=== PATIENT | female | born 1985 | race American Indian/Alaskan Native ===

== ENCOUNTER 2018-01-03 17:50 | Emergency (ER) | payer SELFPAY ==
[2018-01-03 19:25] LABS: Basophils # (Auto) 0.1 K/mm3 (0.0-0.1); Basophils % (Auto) 1.1 % (0.0-1.8); Eosinophils # (Auto) 0.2 K/mm3 (0.0-0.4); Eosinophils % (Auto) 3.5 % (0.0-4.3); Hematocrit 37.3 % (30.3-42.9); Hemoglobin 13.2 gm/dl (10.1-14.3); Lymphocytes % (Auto) 28.1 % (13.4-35.0); Mean Corpuscular HGB Conc 35 % (30-34); Mean Corpuscular Hemoglobin 34 pg (28-32); Mean Corpuscular Volume 96 fl (79-97); Monocytes # (Auto) 0.4 K/mm3 (0.0-0.8); Monocytes % (Auto) 6.2 % (0.0-7.3); Platelet Count 246 K/mm3 (140-440); Red Blood Count 3.89 M/mm3 (3.65-5.03); Red Cell Distribution Width 12.9 % (13.2-15.2)
[2018-01-03 19:42] LABS: Alanine Aminotransferase 13 units/L (7-56); Albumin 4.6 g/dL (3.9-5); BUN/Creatinine Ratio 10; Blood Urea Nitrogen 9 mg/dL (7-17); Calcium 9.8 mg/dL (8.4-10.2); Hemolysis Index 8
[2018-01-04 00:19] LABS: HCG Qualitative,Urine Negative (Negative)
[2018-01-04 00:20] LABS: Bilirubin,Urine NEG (Negative); Blood,Urine MOD (Negative); Color,Urine Yellow (Yellow); Mucus,Urine FEW /HPF; Urobilinogen,Urine < 2.0 mg/dL (<2.0)
[2018-01-04 00:21] LABS: WBC,Urine > 182.0 /HPF (0.0-6.0)
--- NOTE | 2018-01-04 01:04 | Emergency Department Report ---
ED Female HPI - General Chief complaint: Urogenital-Female Stated complaint: PRESSURE/PAIN WITH URINATION Time Seen by Provider: 01/04/18 00:50 Source: patient, family Mode of arrival: Ambulatory Limitations: No Limitations - History of Present Illness Initial comments: This is a 32-year-old female here reported that she's been having urinary burning and pressure over the last 2 days. She said prior to this about a week ago she had a yeast infection after using douche . She reported that she had white vaginal discharge and she used [id number] medication for yeast infection and that cleared up but she started having burning. Pain is 0 out of 10. Denies any nausea or vomiting. Denies any abdominal or back pain. Denies any fever or chills. She is here to be evaluated. She is currently menstruating. Patient is not having any vaginal discharge at present and she has no concern for STDs. MD Complaint: dysuria Onset/Timin -: days(s) Severity scale (0 -10): 0 Are you Now?: No Last Menstrual Period: 12/24/17 EDC: 09/30/18 Associated Symptoms: dysuria. denies: vaginal discharge, vaginal bleeding, abdominal pain, nausea/vomiting, fever/chills, headaches, loss of appetite, hematuria, rash, seizure, shortness of breath, syncope, weakness - Related Data Sexually active: Yes Previous Rx's Medication Instructions Recorded Last Taken Type Sulfamethoxazole/Trimethoprim 1 each PO BID 10 Days #20 tablet 01/04/18 Unknown Rx [Bactrim DS TAB] Allergies Allergy/AdvReac Type Severity Reaction Status Date / Time No Known Allergies Allergy Unverified 01/03/18 19:08 ED Review of Systems ROS: Stated complaint: PRESSURE/PAIN WITH URINATION Other details as noted in HPI Constitutional: denies: chills, fever Respiratory: denies: cough, shortness of breath, SOB with exertion, SOB at rest , wheezing Cardiovascular: denies: chest pain, palpitations Gastrointestinal: denies: abdominal pain, nausea, vomiting, diarrhea, constipation Genitourinary: dysuria, other (urinary pressure). denies: urgency, frequency, hematuria, discharge, abnormal menses, dyspareunia Musculoskeletal: denies: back pain Skin: denies: rash, lesions Hematological/Lymphatic: easy bleeding ED Past Medical Hx - Past Medical History Previous Medical History?: No - Surgical History Past Surgical History?: No - Family History Family history: no significant - Social History Smoking Status: Current Every Day Smoker Substance Use Type: Alcohol - Medications Home Medications: Home Medications Medication Instructions Recorded Confirmed Last Taken Type Sulfamethoxazole/Trimethoprim 1 each PO BID 10 Days #20 tablet 01/04/18 Unknown Rx [Bactrim DS TAB] ED Physical Exam - General Limitations: No Limitations General appearance: alert, in no apparent distress - Head Head exam: Present: atraumatic, normocephalic, normal inspection - Eye Eye exam: Present: normal appearance, PERRL, EOMI Pupils: Present: normal accommodation - ENT ENT exam: Present: normal exam, normal orophraynx, mucous membranes moist - Neck Neck exam: Present: normal inspection, full ROM. Absent: tenderness, lymphadenopathy - Respiratory Respiratory exam: Present: normal lung sounds bilaterally. Absent: respiratory distress, chest wall tenderness - Cardiovascular Cardiovascular Exam: Present: regular rate, normal rhythm, normal heart sounds. Absent: systolic murmur, diastolic murmur - GI/Abdominal GI/Abdominal exam: Present: soft, normal bowel sounds. Absent: distended, tenderness - Extremities Exam Extremities exam: Present: normal inspection, full ROM, normal capillary refill , other (no clubbing, cyanosis or edema. +2 pulses to all extremities and no neurovascular compromise). Absent: tenderness, pedal edema, calf tenderness - Back Exam Back exam: Present: normal inspection, full ROM, other (ambulates without any difficulties). Absent: tenderness, CVA tenderness (R), CVA tenderness (L), rash noted - Neurological Exam Neurological exam: Present: alert, oriented X3, normal gait - Psychiatric Psychiatric exam: Present: normal affect, normal mood - Skin Skin exam: Present: warm, dry, intact, normal color. Absent: rash ED Course Vital Signs 01/03/18 01/04/18 19:03 01:15 Temperature 98.4 F Pulse Rate 69 72 Respiratory 16 16 Rate Blood Pressure 144/56 Blood Pressure 132/76 [Left] O2 Sat by Pulse 100 100 Oximetry - Reevaluation(s) Reevaluation #1: 01/04/18 01:49 Patient given Bactrim DS 1 tablet by mouth to start treating urinary tract infection. Urinalysis shows acute cystitis with hematuria. ED Medical Decision Making - Lab Data Result diagrams: 01/03/18 19:14 01/03/18 19:14 Lab Results 01/03/18 01/03/18 01/03/18 Range/Units 19:14 19:14 23:52 WBC 7.0 (4.5-11.0) K/mm3 RBC 3.89 (3.65-5.03) M/mm3 Hgb 13.2 (10.1-14.3) gm/dl Hct 37.3 (30.3-42.9) % MCV 96 (79-97) fl MCH 34 H (28-32) pg MCHC 35 H (30-34) % RDW 12.9 L (13.2-15.2) % Plt Count 246 (140-440) K/mm3 Lymph % (Auto) 28.1 (13.4-35.0) % [place] % (Auto) 6.2 (0.0-7.3) % Eos % (Auto) 3.5 (0.0-4.3) % Baso % (Auto) 1.1 (0.0-1.8) % Lymph # 2.0 (1.2-5.4) K/mm3 [place] # 0.4 (0.0-0.8) K/mm3 Eos # 0.2 (0.0-0.4) K/mm3 Baso # 0.1 (0.0-0.1) K/mm3 Seg Neutrophils % 61.1 (40.0-70.0) % Seg Neutrophils # 4.2 (1.8-7.7) K/mm3 Sodium 140 (137-145) mmol/L Potassium 4.5 (3.6-5.0) mmol/L Chloride 102.5 (98-107) mmol/L Carbon Dioxide 27 (22-30) mmol/L Anion Gap 15 mmol/L BUN 9 (7-17) mg/dL Creatinine 0.9 (0.7-1.2) mg/dL Estimated GFR > 60 ml/min BUN/Creatinine Ratio 10 % Glucose 93 (65-100) mg/dL Calcium 9.8 (8.4-10.2) mg/dL Total Bilirubin 0.70 (0.1-1.2) mg/dL AST 19 (5-40) units/L ALT 13 (7-56) units/L Alkaline Phosphatase 42 (35-129) units/L Total Protein 7.7 (6.3-8.2) g/dL Albumin 4.6 (3.9-5) g/dL Albumin/Globulin Ratio 1.5 % Urine Color Yellow (Yellow) Urine Turbidity Clear (Clear) Urine pH 5.0 (5.0-7.0) Ur Specific [place] 1.015 (1.003-1.030) Urine Protein 30 mg/dl (Negative) mg/dL Urine Glucose (UA) Neg (Negative) mg/dL Urine Ketones Neg (Negative) mg/dL Urine Blood Mod (Negative) Urine Nitrite Neg (Negative) Urine Bilirubin Neg (Negative) Urine Urobilinogen < 2.0 (<2.0) mg/dL Ur Leukocyte Esterase Lg (Negative) Urine WBC (Auto) > 182.0 H (0.0-6.0) /HPF Urine RBC (Auto) 20.0 (0.0-6.0) /HPF U Epithel Cells (Auto) 10.0 (0-13.0) /HPF Urine Mucus Few /HPF Urine HCG, Qual (Negative) 01/03/18 Range/Units 23:52 WBC (4.5-11.0) K/mm3 RBC (3.65-5.03) M/mm3 Hgb (10.1-14.3) gm/dl Hct (30.3-42.9) % MCV (79-97) fl MCH (28-32) pg MCHC (30-34) % RDW (13.2-15.2) % Plt Count (140-440) K/mm3 Lymph % (Auto) (13.4-35.0) % [place] % (Auto) (0.0-7.3) % Eos % (Auto) (0.0-4.3) % Baso % (Auto) (0.0-1.8) % Lymph # (1.2-5.4) K/mm3 [place] # (0.0-0.8) K/mm3 Eos # (0.0-0.4) K/mm3 Baso # (0.0-0.1) K/mm3 Seg Neutrophils % (40.0-70.0) % Seg Neutrophils # (1.8-7.7) K/mm3 Sodium (137-145) mmol/L Potassium (3.6-5.0) mmol/L Chloride (98-107) mmol/L Carbon Dioxide (22-30) mmol/L Anion Gap mmol/L BUN (7-17) mg/dL Creatinine (0.7-1.2) mg/dL Estimated GFR ml/min BUN/Creatinine Ratio % Glucose (65-100) mg/dL Calcium (8.4-10.2) mg/dL Total Bilirubin (0.1-1.2) mg/dL AST (5-40) units/L ALT (7-56) units/L Alkaline Phosphatase (35-129) units/L Total Protein (6.3-8.2) g/dL Albumin (3.9-5) g/dL Albumin/Globulin Ratio % Urine Color (Yellow) Urine Turbidity (Clear) Urine pH (5.0-7.0) Ur Specific [place] (1.003-1.030) Urine Protein (Negative) mg/dL Urine Glucose (UA) (Negative) mg/dL Urine Ketones (Negative) mg/dL Urine Blood (Negative) Urine Nitrite (Negative) Urine Bilirubin (Negative) Urine Urobilinogen (<2.0) mg/dL Ur Leukocyte Esterase (Negative) Urine WBC (Auto) (0.0-6.0) /HPF Urine RBC (Auto) (0.0-6.0) /HPF U Epithel Cells (Auto) (0-13.0) /HPF Urine Mucus /HPF Urine HCG, Qual Negative (Negative) Urine culture sent - Medical Decision Making Patient here reports that she is having urinary burning. Patient's urinalysis shows that she has acute cystitis with hematuria. Urine culture sent. CBC and CMP stable, hCG is negative. Physical exam is normal. I discussed the patient laboratory findings and she voiced understanding. Patient started on Bactrim DS one tablet by mouth in emergency room. DX of acute cystitis with hematuria, dysuria Discharged home in stable condition with prescription for Bactrim DS. I discussed that she is to follow-up with her primary care physician and if she doesn't have a primary care physician she should follow up with [facility] and she voiced understanding. Vital signs are stable she is afebrile. - Differential Diagnosis STI, urinary tract infection, dysuria Critical care attestation.: If time is entered above; I have spent that time in minutes in the direct care of this critically ill patient, excluding procedure time. ED Disposition Clinical Impression: Acute cystitis with hematuria, Dysuria Disposition: TO HOME OR SELFCARE Is pt being admited?: No Does the pt Need Aspirin: No Condition: Stable Instructions: Urinary Tract Infection in Women (ED), Dysuria (ED) Additional Instructions: Please take antibiotic as prescribed Increased her fluid intake Follow-up with your SENIOR TRIAL ATTORNEY or primary care physician in 3-5 days if you do not have one you can follow-up with outside Medical Center If his symptoms worsens, return to the emergency room. Prescriptions: Sulfamethoxazole/Trimethoprim [Bactrim DS TAB] 1 each PO BID 10 Days #20 tablet Referrals: PRIMARY CARE, [Primary Care Provider] - 3-5 Days [facility] [Outside] - 3-5 Days Forms: Work/School Release Form(ED)
[2018-01-04] MEDS ORDERED: BACTRIM DS PO ONE (01:06)
[2018-01-04 01:16] VITALS: BP 132/76
== END 2018-01-04 02:03 | disposition home or self-care (01) ==
LOC: ED 17:50
DX: N30.01 Acute cystitis with hematuria (principal); F17.200 Nicotine dependence, unspecified, uncomplicated
CPT/HCPCS: 36415; 80053; 81001; 81025; 85025; 87086; 99283

== ENCOUNTER 2018-07-13 17:29 | Emergency (ER) | payer SELFPAY ==
[2018-07-13 19:39] LABS: Bilirubin,Urine NEG (Negative); Blood,Urine MOD (Negative); Color,Urine Yellow (Yellow); Mucus,Urine FEW /HPF; Protein,Urine <15 mg/dL mg/dL (Negative); WBC,Urine < 1.0 /HPF (0.0-6.0)
[2018-07-13 19:43] LABS: HCG Qualitative,Urine Negative (Negative)
[2018-07-13] MEDS ORDERED: ZITHROMAX PO ONE (21:23)
[2018-07-13] MEDS ORDERED: XYLOCAINE 1% MPF 5 mL INFILTRATI ONE (21:23)
[2018-07-13] MEDS ORDERED: ROCEPHIN IM ONE (21:23)
--- NOTE | 2018-07-13 21:23 | Emergency Department Report ---
ED Female HPI - General Chief complaint: Urogenital-Female Stated complaint: VAGINAL PAIN/FEVER Time Seen by Provider: 07/13/18 20:57 Source: patient, family Mode of arrival: Ambulatory Limitations: No Limitations - History of Present Illness Initial comments: This is a 32-year-old female here report that she has recurrent UTI, urinary burning, irritation and lower back pain with some nausea. She said her symptoms started last week and pain is 6 out of 10 to bilateral lower back. Denies any medical history. Denies any fever or chills. Denies any vomiting or diarrhea. She was last treated with ciprofloxacin on 04/19/2018 for urinary tract infection and sulfa Bactrim on 01/04/2018 for UTI. Last menstrual period was 06/29/2018. Patient does not have a primary care doctor. She is also reporting vaginal discharge that is yellowish in color and has an odor. She had unsafe sex last week. She is not certain if she has STD. Back pain is constant with no alleviating or exacerbating factors MD Complaint: vaginal discharge, dysuria, other (back pain) Onset/Timin -: week(s) Location: other (back) Radiation: non-radiating Severity: moderate Severity scale (0 -10): 6 Quality: aching Improves with: none Worsens with: none Are you Now?: No Last Menstrual Period: 06/29/18 EDC: 04/05/19 Associated Symptoms: vaginal discharge, nausea/vomiting, dysuria. denies: vaginal bleeding, abdominal pain, fever/chills, headaches, loss of appetite, hematuria, rash, seizure, shortness of breath, syncope, weakness - Related Data Sexually active: Yes Previous Rx's Medication Instructions Recorded Last Taken Type Sulfamethoxazole/Trimethoprim 1 each PO BID 10 Days #20 tablet 01/04/18 Unknown Rx [Bactrim DS TAB] Ciprofloxacin HCl [Cipro] 500 mg PO BID #14 tablet 04/19/18 Unknown Rx Ibuprofen [Motrin] 600 mg PO Q8H PRN #20 tablet 04/19/18 Unknown Rx Phenazopyridine [Pyridium] 100 mg PO TID 2 Days tab 04/19/18 Unknown Rx traMADol [Ultram] 50 mg PO Q6HR PRN #10 tablet 04/19/18 Unknown Rx cephALEXin [Keflex] 500 mg PO Q12H 10 Days #20 cap 07/13/18 Unknown Rx metroNIDAZOLE [Flagyl] 500 mg PO Q12HR 7 Days #14 tab 07/13/18 Unknown Rx Allergies Allergy/AdvReac Type Severity Reaction Status Date / Time No Known Allergies Allergy Verified 04/19/18 00:25 ED Review of Systems ROS: Stated complaint: VAGINAL PAIN/FEVER Other details as noted in HPI Constitutional: denies: chills, fever ENT: denies: throat pain, congestion Respiratory: denies: cough, shortness of breath, wheezing Cardiovascular: denies: chest pain, palpitations, edema, syncope Gastrointestinal: nausea. denies: abdominal pain, vomiting, diarrhea, constipation, hematemesis, melena, hematochezia Genitourinary: dysuria, discharge. denies: hematuria, abnormal menses Musculoskeletal: back pain. denies: joint swelling, arthralgia, myalgia Skin: denies: rash Neurological: denies: headache, weakness, abnormal gait ED Past Medical Hx - Past Medical History Previous Medical History?: Yes Additional medical history: Recurrent urinary tract infection - Surgical History Past Surgical History?: No - Family History Family history: hypertension - Social History Smoking Status: Never Smoker Substance Use Type: None - Medications Home Medications: Home Medications Medication Instructions Recorded Confirmed Last Taken Type Sulfamethoxazole/Trimethoprim 1 each PO BID 10 Days #20 tablet 01/04/18 Unknown Rx [Bactrim DS TAB] Ciprofloxacin HCl [Cipro] 500 mg PO BID #14 tablet 04/19/18 Unknown Rx Ibuprofen [Motrin] 600 mg PO Q8H PRN #20 tablet 04/19/18 Unknown Rx Phenazopyridine [Pyridium] 100 mg PO TID 2 Days tab 04/19/18 Unknown Rx traMADol [Ultram] 50 mg PO Q6HR PRN #10 tablet 04/19/18 Unknown Rx cephALEXin [Keflex] 500 mg PO Q12H 10 Days #20 cap 07/13/18 Unknown Rx metroNIDAZOLE [Flagyl] 500 mg PO Q12HR 7 Days #14 tab 07/13/18 Unknown Rx ED Physical Exam - General Limitations: No Limitations General appearance: alert, in no apparent distress - Head Head exam: Present: atraumatic, normocephalic, normal inspection - Eye Eye exam: Present: normal appearance, PERRL, EOMI Pupils: Present: normal accommodation - ENT ENT exam: Present: normal exam, normal orophraynx, mucous membranes moist - Neck Neck exam: Present: normal inspection, full ROM. Absent: tenderness, lymphadenopathy - Respiratory Respiratory exam: Present: normal lung sounds bilaterally. Absent: respiratory distress, chest wall tenderness - Cardiovascular Cardiovascular Exam: Present: regular rate, normal rhythm, normal heart sounds - GI/Abdominal GI/Abdominal exam: Present: soft, normal bowel sounds. Absent: distended, tenderness, guarding, rebound, rigid, organomegaly, mass - Extremities Exam Extremities exam: Present: normal inspection, full ROM, normal capillary refill, calf tenderness, other (No cce. + 2 pulses in all extremities, no neurovascular compromise). Absent: tenderness, pedal edema, joint swelling - Back Exam Back exam: Present: normal inspection, full ROM, other (ambulates without any difficulties). Absent: tenderness, CVA tenderness (R), CVA tenderness (L), muscle spasm, paraspinal tenderness, vertebral tenderness, rash noted - Neurological Exam Neurological exam: Present: alert, oriented X3, normal gait - Psychiatric Psychiatric exam: Present: normal affect, normal mood - Skin Skin exam: Present: warm, dry, intact, normal color. Absent: rash ED Course Vital Signs 07/13/18 07/13/18 18:01 22:30 Temperature 98 F 97.9 F Pulse Rate 70 79 Respiratory 16 18 Rate Blood Pressure 134/72 Blood Pressure 138/72 [Left] O2 Sat by Pulse 100 99 Oximetry - Reevaluation(s) Reevaluation #1: 07/13/18 21:57 I with patient that she has some trace leukocyte Estrace in her urine with moderate blood without any other findings in the urine. She also discussed it me that she has vaginal discharge and unsafe sex. test is negative. I discussed the patient that she will need to go to [facility] or [facility] as she does not have a primary care physician to guess that this tested for STD but I will treat her for urinary tract infection based on leukocyte esterase, moderate blood and complains of urinary burning lower back pain. Also discussed with her and per her treatment for STD and she chooses to have this so I explained to her I will treat her with antibiotic in hospital for gonorrhea and chlamydia and also place her on medication for BV and Trichomonas and she will need to follow-up at [facility] or [facility] and on week for STD check. Patient agrees and she was given treatments without any adverse reaction ED Medical Decision Making - Medical Decision Making This is a 32-year-old patient here for urinary burning in the lower back pain and has recurrent UTI. UA shows moderate blood with trace leukocyte Estrace and she has urinary burning or back pain so we will treat for UTI and send urine culture. She also complained that she started vaginal discharge as is yellow and have odor and she agrees to a prior treatment and was treated with azithromycin and Rocephin in the emergency room for gonorrhea and chlamydia and started on Flagyl to cover Trichomonas and BV and agrees to [facility] some outside [facility] for STD check in 7-10 days. He is aware that she needs to refrain from sexual activity for the next 14 days, I will call while in Flagyl and to let her partner noted that she was treated for STD and emergency room and she agrees. Patient discharged home with prescription for Flagyl, Keflex. Critical care attestation.: If time is entered above; I have spent that time in minutes in the direct care of this critically ill patient, excluding procedure time. ED Disposition Clinical Impression: Vaginal discharge, Acute cystitis with hematuria, Concern about STD in female without diagnosis, Dysuria Disposition: DC-01 TO HOME OR SELFCARE Is pt being admited?: No Does the pt Need Aspirin: No Condition: Stable Instructions: Sexually Transmitted Diseases (ED), Safe Sex (ED), Urinary Tract Infection in Women (ED), Dysuria (ED) Additional Instructions: [facility] in 7-10 days for repeat STD testing Patient is prescribed and please do not drink all call while taking Flagyl as it can cause negative reaction and upset stomach. Refrain from having sexual activity for the next 2 weeks. Partner know that you were treated for STD and emergency room. Take all medication as prescribed Increase her fluid intake practice safe sex Prescriptions: cephALEXin [Keflex] 500 mg PO Q12H 10 Days #20 cap metroNIDAZOLE [Flagyl] 500 mg PO Q12HR 7 Days #14 tab Referrals: [facility] [Outside] - 7-10 days [facility] [Outside] - 7-10 days Forms: Work/School Release Form(ED)
[2018-07-13 22:30] VITALS: BP 138/72
== END 2018-07-13 22:31 | disposition home or self-care (01) ==
LOC: ED 17:29
DX: N30.01 Acute cystitis with hematuria (principal); Z20.2 Contact with and (suspected) exposure to infections with a predominantly sexual mode of transmission
CPT/HCPCS: 81001; 81025; 96372; 99283; J0696